=== PATIENT | male | born 1980 | race African-American/Black ===

== ENCOUNTER 2017-07-01 21:05 | Emergency (ER) | payer SELFPAY ==
[~2017-07-01] VITALS: Ht 188 cm; Wt 136.1 kg
--- NOTE | 2017-07-01 21:23 | PHYS DOC ---
Past Medical History Past Medical History: No Pertinent History Past Surgical History: No Surgical History Alcohol Use: None Drug Use: Marijuana Adult General Chief Complaint Chief Complaint: ABDOMINAL PAIN HPI HPI Patient is a 36 year old M who presents with left upper and left lower quadrant abdominal pain for the past 3 days. Patient states the pain was worse today which she rated a 10 out of 10 which brought him to the emergency room. Patient had nausea with no vomiting or diarrhea. Patient denies any dysuria. Patient denies any chest pain or shortness of breath. Patient denies any fevers. Patient states nothing increases or decreases the pain. Patient has no other complaints. Patient only previous abdominal surgery was a foreign body removal when he was a kid. Review of Systems Review of Systems GEN: Denies fevers, chills, sweats HEENT: Denies blurred vision, sore throat CV: Denies chest pain RESP: Denies shortness of air, cough GI: Abdominal pain with nausea NEURO: Denies confusion, dizziness MSK: Denies weakness, joint pain/swelling Current Medications Current Medications Current Medications Medications (Trade) Dose Ordered Sig/Gutierrez Start Time Stop Time Status Last Admin Dose Admin Info (Do NOT chart on this entry -- for MONITORING) 1 each PRN DAILY PRN 07/01/17 21:45 07/03/17 21:44 Iohexol (Omnipaque 300 Mg/ml) 75 ml 1X ONCE 07/01/17 22:00 07/01/17 22:01 DC 07/01/17 21:52 75 ML Ondansetron HCl (Zofran) 4 mg 1X ONCE 07/01/17 22:00 07/01/17 22:01 DC 07/01/17 21:57 4 MG Sodium Chloride 1,000 ml @ 1,000 mls/hr 1X ONCE 07/01/17 22:00 07/01/17 22:59 07/01/17 21:56 1,000 MLS/HR Allergies Allergies Allergies Coded Allergies Type Severity Reaction Last Updated Verified No Known Drug Allergies 04/06/16 No Physical Exam Physical Exam GEN.: No apparent distress. Alert and oriented. HEENT: Head is normocephalic, atraumatic NECK: Supple. LUNGS: CTAB. HEART: RRR, S1, S2 present. Peripheral pulses intact ABDOMEN: Soft, positive tenderness palpation to the left upper quadrant and left lower quadrant with no rebound tenderness, no guarding, no abdominal distention. Positive bowel sounds. EXTREMITIES: Without any cyanosis. NEUROLOGIC: Normal speech, normal tone PSYCHIATRIC: Normal affect, normal mood. SKIN: No ulcerations Current Patient Data Vital Signs Vital Signs Date Time Temp Pulse Resp B/P (MAP) Pulse Ox O2 Delivery O2 Flow Rate FiO2 07/01/17 21:18 98.4 93 18 139/92 (108) 99 Room Air 98.4 Lab Values Laboratory Tests Test 07/01/17 21:15 07/01/17 21:20 Urine Collection Type Unknown Urine Color Yellow Urine Clarity Clear Urine pH 6.0 Urine Specific [place] >=1.030 Urine Protein Negative mg/dL (NEG-TRACE) Urine Glucose (UA) Negative mg/dL (NEG) Urine Ketones (Stick) Negative mg/dL (NEG) Urine Blood Negative (NEG) Urine Nitrite Negative (NEG) Urine Bilirubin Negative (NEG) Urine Urobilinogen Dipstick 0.2 mg/dL (0.2 mg/dL) Urine Leukocyte Esterase Negative (NEG) Urine RBC 0 /HPF (0-2) Urine WBC Occ /HPF (0-4) Urine Squamous Epithelial Cells Few /LPF Urine Bacteria 0 /HPF (0-FEW) Urine Mucus Marked /LPF White Blood Count 11.7 x10^3/uL (4.0-11.0) H Red Blood Count 5.23 x10^6/uL (4.30-5.70) Hemoglobin 15.0 g/dL (13.0-17.5) Hematocrit 44.8 % (39.0-53.0) Mean Corpuscular Volume 86 fL (79-100) Mean Corpuscular Hemoglobin 29 pg (25-35) Mean Corpuscular Hemoglobin Concent 34 g/dL (31-37) Red Cell Distribution Width 14.3 % (11.5-14.5) Platelet Count 315 x10^3/uL (140-400) Neutrophils (%) (Auto) 48 % (31-73) Lymphocytes (%) (Auto) 41 % (24-48) Monocytes (%) (Auto) 6 % (0-9) Eosinophils (%) (Auto) 4 % (0-3) H Basophils (%) (Auto) 2 % (0-3) Neutrophils # (Auto) 5.6 x10^3uL (1.8-7.7) Lymphocytes # (Auto) 4.8 x10^3/uL (1.0-4.8) Monocytes # (Auto) 0.7 x10^3/uL (0.0-1.1) Eosinophils # (Auto) 0.5 x10^3/uL (0.0-0.7) Basophils # (Auto) 0.2 x10^3/uL (0.0-0.2) Sodium Level 145 mmol/L (136-145) Potassium Level 3.9 mmol/L (3.5-5.1) Chloride Level 106 mmol/L (98-107) Carbon Dioxide Level 31 mmol/L (21-32) Anion Gap 8 (6-14) Blood Urea Nitrogen 12 mg/dL (8-26) Creatinine 1.0 mg/dL (0.7-1.3) Estimated GFR (Cockcroft-Gault) 103.5 BUN/Creatinine Ratio 12 (6-20) Glucose Level 103 mg/dL (70-99) H Calcium Level 9.1 mg/dL (8.5-10.1) Total Bilirubin 0.2 mg/dL (0.2-1.0) Aspartate Amino Transferase (AST) 50 U/L (15-37) H Alanine Aminotransferase (ALT) 108 U/L (16-63) H Alkaline Phosphatase 76 U/L (46-116) Total Protein 7.0 g/dL (6.4-8.2) Albumin 4.1 g/dL (3.4-5.0) Albumin/Globulin Ratio 1.4 (1.0-1.7) Lipase 164 U/L (73-393) Laboratory Tests 07/01/17 21:20 Laboratory Tests 07/01/17 21:20 EKG EKG [] Radiology/Procedures Radiology/Procedures CT scan abdomen pelvis: Impression: 1. No acute abnormality identified in the abdomen or pelvis. 2. Small fat-containing umbilical hernia.[] Course & Med Decision Making Course & Med Decision Making Pertinent Labs and Imaging studies reviewed. (See chart for details) ED course: Patient was seen and examined emergency room abdominal workup was ordered along with a CT scan of the abdomen pelvis with contrast 2240: Informed patient of CT findings and lab work. Explained to the patient that he needs a follow up as PCP in have a colonoscopy. MDM: After reviewing the chart, CC/HPI/PMH, physical exam, [lab results], [ radiological results], I do not believe the patient has an intra-abdominal emergency warranting further workup and/or admission at this time. On reexamination the patient feels better. Explained CT findings with the patient including a small umbilical hernia. Recommended short-term follow-up with his PCP in the next one to 2 days. Recommended outpatient colonoscopy to further evaluate his symptoms. Additional verbal discharge instructions were provided to the patient and that if symptoms get worse or any new symptoms arise that are worrisome to the patient he is to return to the emergency room immediately [] Dragon Disclaimer Dragon Disclaimer This electronic medical record was generated, in whole or in part, using a voice recognition dictation system. Departure Departure Impression: Primary Impression: Abdominal pain Disposition: 01 HOME, SELF-CARE Condition: IMPROVED Referrals: MER[facility] KHAN (PCP) Patient Instructions: Abdominal Pain (Nonspecific) Additional Instructions: Please follow-up with your family physician in the next one to 2 days return if symptoms increase REED QUAN DO Jul 01, 2017 21:23
[2017-07-01 21:28] LABS: BASO # 0.2 x10^3/uL (0.0-0.2); BASO % 2 % (0-3); EOS % 4 % (0-3); HEMATOCRIT 44.8 % (39.0-53.0); LYMPH # 4.8 x10^3/uL (1.0-4.8); LYMPH % 41 % (24-48); MEAN CORPUSCULAR HEMOGLOBIN 29 pg (25-35); MEAN CORPUSCULAR HGB CONC 34 g/dL (31-37); MEAN CORPUSCULAR VOLUME 86 fL (79-100); MONO % 6 % (0-9); NEUT % 48 % (31-73); PLATELET COUNT 315 x10^3/uL (140-400); RED BLOOD COUNT 5.23 x10^6/uL (4.30-5.70); RED CELL DISTRIBUTION WIDTH 14.3 % (11.5-14.5); WHITE BLOOD COUNT 11.7 x10^3/uL (4.0-11.0)
[2017-07-01 21:30] LABS: BILIRUBIN,URINE NEGATIVE (NEG); GLUCOSE,URINE NEGATIVE (NEG); NITRITE,URINE NEGATIVE (NEG); PROTEIN,URINE NEGATIVE (NEG-TRACE); UROBILINOGEN,URINE 0.2 mg/dL (0.2 mg/dL)
[2017-07-01 21:36] LABS: BACTERIA,URINE 0 /HPF (0-FEW); RBC,URINE 0 /HPF (0-2); SQUAMOUS EPITHELIAL CELL,UR FEW /LPF; WBC,URINE OCC /HPF (0-4)
[2017-07-01 21:41] LABS: CALCIUM 9.1 mg/dL (8.5-10.1); GFR 103.5; POTASSIUM 3.9 mmol/L (3.5-5.1)
[2017-07-01] MEDS ORDERED: CONTRAST GIVEN MC PRN (21:45)
[2017-07-01 21:46] LABS: ALBUMIN 4.1 g/dL (3.4-5.0); ALBUMIN/GLOBULIN RATIO 1.4 (1.0-1.7); TOTAL BILIRUBIN 0.2 mg/dL (0.2-1.0)
[2017-07-01] MEDS ORDERED: ONDANSETRON PF 4 MG/2 ML VIAL. IV ONE (22:00)
[2017-07-01] MEDS ORDERED: IOHEXOL 300 MG/ML 75 ML VIAL IV ONE (22:00)
[2017-07-01] MEDS ORDERED: IV NORMAL SALINE 1000ML BAG 1,000 ML IV ONE (22:00)
--- NOTE | 2017-07-01 22:23 | RAD ---
CT Abdomen and Pelvis With Intravenous Contrast: History: Severe left lower quadrant pain for 3 days. Comparison: None. Technique: After administration of intravenous contrast administration, 75 mL Omnipaque-300, CT of the abdomen and pelvis was performed. Exposure: One or more of the following individualized dose reduction techniques were utilized for this examination: 1. Automated exposure control 2. Adjustment of the mA and/or kV according to patient size 3. Use of iterative reconstruction technique Findings: Evaluation of enteric structures may be limited by lack of oral contrast. There is also mild pontine mottle artifact secondary to patient body habitus. Liver, spleen, pancreas, gallbladder, and bilateral adrenal glands are unremarkable. Bilateral kidneys enhance symmetrically. No bowel obstruction or inflammation is identified. Appendix is without evidence of inflammation. Fat-containing umbilical hernia is seen. Urinary bladder is unremarkable. No free air or free fluid seen in the abdomen or pelvis. Impression: 1. No acute abnormality identified in the abdomen or pelvis. 2. Small fat-containing umbilical hernia. Electronically signed by: Delvin Kirkpatrick MD (07/01/2017 10:20 PM) [facility]
[2017-07-01 22:56] VITALS: BP 113/79
== END 2017-07-01 23:05 | disposition home or self-care (01) ==
LOC: ER 21:05
DX: R10.12 Left upper quadrant pain (principal); R10.32 Left lower quadrant pain; R11.0 Nausea
CPT/HCPCS: 36415; 74177; 80053; 81001; 83690; 85025; 96361; 96374; 99285; J2405; J7030; Q9967

== ENCOUNTER 2019-10-13 10:42 | Emergency (ER) | payer SELFPAY ==
[~2019-10-13] VITALS: Ht 188 cm; Wt 150.0 kg
[2019-10-13 11:44] VITALS: BP 113/79
[2019-10-13] MEDS ORDERED: AMOXICILLIN 250 MG CAPSULE. PO ONE (12:15)
[2019-10-13] MEDS ORDERED: predniSONE 10 MG TABLET PO ONE (12:15)
[2019-10-13] MEDS ORDERED: PRED50TA PO (12:29)
[2019-10-13] MEDS ORDERED: AMOX875T PO (12:29)
--- NOTE | 2019-10-13 12:29 | PHYS DOC ---
Past Medical History Past Medical History: No Pertinent History Past Surgical History: No Surgical History Alcohol Use: None Drug Use: Marijuana Adult General Chief Complaint Chief Complaint: SORE THROAT HPI HPI Patient is a 38 year old medical presents with sore throat and chills for 4 days. Denies any coughing or congestion. Reports he is able to swallow though it is painful Review of Systems Review of Systems Constitutional: Reports fever Eyes: Denies change in visual acuity, redness, or eye pain [] HENT: Reports sore throat. Denies nasal congestion Respiratory: Denies cough or shortness of breath [] Cardiovascular: No additional information not addressed in HPI [] GI: Denies abdominal pain, nausea, vomiting, bloody stools or diarrhea [] : Denies dysuria or hematuria [] Musculoskeletal: Denies back pain or joint pain [] Integument: Denies rash or skin lesions [] Neurologic: Denies headache, focal weakness or sensory changes [] All other systems were reviewed and found to be within normal limits, except as documented in this note. Current Medications Current Medications Current Medications Medications (Trade) Dose Ordered Sig/Gutierrez Start Time Stop Time Status Last Admin Dose Admin Amoxicillin (Amoxil) 500 mg 1X ONCE 10/13/19 12:15 10/13/19 12:16 DC 10/13/19 12:07 500 MG Prednisone (Prednisone) 50 mg 1X ONCE 10/13/19 12:15 10/13/19 12:16 DC 10/13/19 12:07 50 MG Allergies Allergies Allergies Coded Allergies Type Severity Reaction Last Updated Verified No Known Drug Allergies 04/06/16 No Physical Exam Physical Exam Constitutional: Well developed, well nourished, no acute distress, non-toxic appearance. [] HENT: Normocephalic, atraumatic, bilateral external ears normal, oropharynx moist, no oral exudates, nose normal. [] Posterior pharynx with mild erythema, midline uvula, no exudate. +2 anterior cervical adenopathy. Airway is open Eyes: PERRLA, EOMI, conjunctiva normal, no discharge. [] Neck: Normal range of motion, no tenderness, supple, no stridor. [] Cardiovascular:Heart rate regular rhythm, no murmur [] Lungs & Thorax: Bilateral breath sounds clear to auscultation [] Abdomen: Bowel sounds normal, soft, no tenderness, no masses, no pulsatile masses. [] Skin: Warm, dry, no erythema, no rash. [] Back: No tenderness, no CVA tenderness. [] Extremities: No tenderness, no cyanosis, no clubbing, ROM intact, no edema. [] Neurologic: Alert and oriented X 3, normal motor function, normal sensory function, no focal deficits noted. [] Psychologic: Affect normal, judgement normal, mood normal. [] Current Patient Data Vital Signs Vital Signs Date Time Temp Pulse Resp B/P (MAP) Pulse Ox O2 Delivery O2 Flow Rate FiO2 10/13/19 11:44 98.9 104 20 113/79 (90) 98 Room Air 98.9 Lab Values Laboratory Tests Test 10/13/19 11:45 Group A Streptococcus Rapid Positive (NEGATIVE) EKG EKG [] Radiology/Procedures Radiology/Procedures [] Course & Med Decision Making Course & Med Decision Making Pertinent Labs and Imaging studies reviewed. (See chart for details) Positive rapid strep. Discharged on amoxicillin and prednisone. Provided return precautions. Discharged in stable condition Dragon Disclaimer Dragon Disclaimer This electronic medical record was generated, in whole or in part, using a voice recognition dictation system. Departure Departure Impression: Primary Impression: Acute streptococcal pharyngitis Disposition: HOME, SELF-CARE Condition: STABLE Referrals: NO PCP (PCP) ETIENNE SHOOK MD Follow-up in 1-2 weeks Patient Instructions: Strep Infections Additional Instructions: You have strep infection. Please take the prescribed medications especially the antibiotics until completed. Continue using Tylenol/Motrin for pain or fever. Saltwater gargles also recommended. Come back to the emergency room at any point symptoms worsen. Scripts Prednisone (PREDNISONE) 50 Mg Tablet 1 TAB PO DAILY, #5 TAB Prov: MAIN REICH APRN 10/13/19 Amoxicillin (AMOXICILLIN) 875 Mg Tablet 1 TAB PO BID, #20 TAB Prov: MAIN REICH APRN 10/13/19 MAIN REICH APRN Oct 13, 2019 12:29
== END 2019-10-13 12:36 | disposition home or self-care (01) ==
LOC: ER 10:42
DX: J02.0 Streptococcal pharyngitis (principal); B95.0 Streptococcus, group A, as the cause of diseases classified elsewhere
CPT/HCPCS: 87880; 99283; J7512

== ENCOUNTER 2021-06-05 15:42 | Emergency (ER) | payer SELFPAY ==
[~2021-06-05] VITALS: Ht 188 cm; Wt 165.1 kg
[~2021-06-05 15:42] MED LIST: AMOX875T PO; PRED50TA PO
--- NOTE | 2021-06-05 16:16 | PHYS DOC ---
Past Medical History Past Medical History: No Pertinent History Additional Past Medical Histor: morbid obesity Past Surgical History: Other Additional Past Surgical Histo: foreign body removal from intestines as child Smoking Status: Former Smoker Alcohol Use: None Drug Use: Marijuana General Adult EDM: Chief Complaint: FLU SYMPTOM HPI: HPI: Patient is a 40-year-old male presents to the emergency department complaining of COVID-19 virus illness for the past week and a half. Patient reports having a COVID-19 virus tests done yesterday and was told today he was positive. Patient reports continued intermittent nausea, diarrhea, fevers chills hot flashes body aches headaches cough or shortness of breath. Patient denies chest pain, nasal or chest congestion. Reports taking tllx-nni-eirzlwi Tylenol at noon today with minimal relief in symptoms. Denies receiving the COVID-19 virus vaccination series, denies allergies to medicines, takes no prescription medications at home. Patient reports his current body aches and pain at a 4 out of 10 pain. Denies other physical symptoms or concerns. Review of Systems: Review of Systems: 14 body systems of review of systems have been reviewed. See HPI for pertinent positives and negative responses, otherwise all other systems are negative, nonpertinent or noncontributory. Constitutional: Negative except as outlined in HPI above. Skin: Negative except as outlined in HPI above. Eyes: Negative except as outlined in HPI above. HENT: Negative except as outlined in HPI above. Respiratory: Negative except as outlined in HPI above. Cardiovascular: Negative except as outlined in HPI above. GI: Negative except as outlined in HPI above. : Negative except as outlined in HPI above. Musculoskeletal: Negative except as outlined in HPI above. Integument: Negative except as outlined in HPI above. Neurologic: Negative except as outlined in HPI above. Endocrine: Negative except as outlined in HPI above. Lymphatic: Negative except as outlined in HPI above. Psychiatric: Negative except as outlined in HPI above. Heart Score: C/O Chest Pain: No Risk Factors: Risk Factors: DM, Current or recent (<one month) smoker, HTN, HLP, family history of CAD, obesity. Risk Scores: Score 0 - 3: 2.5% MACE over next 6 weeks - Discharge Home Score 4 - 6: 20.3% MACE over next 6 weeks - Admit for Clinical Observation Score 7 - 10: 72.7% MACE over next 6 weeks - Early Invasive Strategies Allergies: Allergies: Allergies Coded Allergies Type Severity Reaction Last Updated Verified No Known Drug Allergies 06/05/21 No Physical Exam: PE: Constitutional: Well developed, well nourished, no acute distress, non-toxic appearance. 40-year-old in no apparent distress. HENT: Normocephalic, atraumatic. Eyes: Conjunctiva normal, no discharge. Neck: Normal range of motion, no stridor. Cardiovascular: No cyanosis appreciated, distal cap refill less than 2 seconds. Lungs & Thorax: Patient is in no respiratory distress, no audible adventitious lung sounds appreciated. Lung sounds clear to auscultate all lung jolly. Abdomen: Nontender, no abnormalities noted. Skin: Warm, dry, no erythema, no rash. Back: No tenderness, no deformities. Extremities: No tenderness, no cyanosis, no clubbing, ROM intact, no edema. Neurologic: Alert and oriented X 3, normal motor function, normal sensory function, no focal deficits noted. Psychologic: Affect normal, judgement normal, mood normal. Current Patient Data: Labs: Laboratory Tests Test 06/05/21 16:15 White Blood Count 7.2 x10^3/uL Red Blood Count 5.52 x10^6/uL Hemoglobin 15.6 g/dL Hematocrit 46.0 % Mean Corpuscular Volume 83 fL Mean Corpuscular Hemoglobin 28 pg Mean Corpuscular Hemoglobin Concent 34 g/dL Red Cell Distribution Width 15.1 % Platelet Count 288 x10^3/uL Neutrophils (%) (Auto) 52 % Lymphocytes (%) (Auto) 39 % Monocytes (%) (Auto) 7 % Eosinophils (%) (Auto) 1 % Basophils (%) (Auto) 1 % Neutrophils # (Auto) 3.7 x10^3/uL Lymphocytes # (Auto) 2.8 x10^3/uL Monocytes # (Auto) 0.5 x10^3/uL Eosinophils # (Auto) 0.0 x10^3/uL Basophils # (Auto) 0.1 x10^3/uL Sodium Level 140 mmol/L Potassium Level 2.9 mmol/L Chloride Level 101 mmol/L Carbon Dioxide Level 26 mmol/L Anion Gap 13 Blood Urea Nitrogen 4 mg/dL Creatinine 1.0 mg/dL Estimated GFR (Cockcroft-Gault) 101.2 Glucose Level 109 mg/dL Calcium Level 8.9 mg/dL Troponin I Quantitative < 0.017 ng/mL Current Medications Medications (Trade) Dose Ordered Sig/Gutierrez Route PRN Reason Start Time Stop Time Status Last Admin Dose Admin Potassium Chloride (Klor-Con) 40 meq 1X ONCE PO 06/05/21 17:00 06/05/21 17:01 Vital Signs: Vital Signs Date Time Temp Pulse Resp B/P (MAP) Pulse Ox O2 Delivery O2 Flow Rate FiO2 06/05/21 15:57 98.5 106 18 145/86 (105) 97 Room Air 98.5 EKG: EKG: EKG performed at 1558 by ED nursing staff shows a sinus tachycardia rate 103 bpm without other ectopy, diffuse ST depressions with T wave inversion in anterior lateral leads, WI interval 0.146, QTc interval 0.511, no acute STEMI appreciated, EKG interpreted by ED attending physician Dr. Oscar. Radiology/Procedures: Radiology/Procedures: PATIENT: SELENE LOTT ACCOUNT: [id number] : 1980 LOCATION: ER AGE: 40 SEX: M EXAM STATUS: REG ER ORD. PHYSICIAN: CHERYL FOSTER APRN REASON: Short of breath, COVID-19 positive PROCEDURE: CHEST AP ONLY EXAM: CHEST 1 VIEW History: Shortness of breath, covid 19 COMPARISON: 04/06/2016 TECHNIQUE: Single portable radiograph of the chest FINDINGS: The cardiac silhouette is unremarkable. Mild bibasilar lung atelectasis or infiltrates. The costophrenic sulci are clear and well demarcated. IMPRESSION: Mild bibasilar lung atelectasis or infiltrates. Electronically signed by: Titus Quintana MD (06/05/2021 4:32 PM) [id number] Course & Med Decision Making: Course & Med Decision Making Pertinent Labs and Imaging studies reviewed. (See chart for details) 40-year-old male, vital signs reviewed, presents emergency department concerning COVID-19 virus symptoms. Physical examination consistent with viral illness. EKG performed by ED nursing staff related to shortness of breath shows nonspecific ST depression with T wave inversion, the patient is not hypoxic, the patient denies chest pain, will order CBC, BMP, troponin, chest x-ray. Patient's potassium 2.9, given oral potassium supplement in ED today. Patient's CBC unremarkable, patient's troponin nonconcerning. Patient's chest x-ray consistent with COVID-19 virus infection. The patient is not hypoxic, lung sounds clear all lung jolly. Patient's presentation and symptoms consistent with COVID-19 virus infectious process. Will discharge patient home diagnosis viral syndrome Covid 19+. Patient's hypokalemia most likely related to diarrhea episodes at home. The patient is not dehydrated on today's visit. Discussed all lab work and findings with patient, recommended COVID-19 virus quarantine, will attach information to discharge instructions, given strict follow-up to ER precautions, follow-up with primary care doctor this week for ongoing symptoms. Will refill prescription for albuterol MDI inhaler, patient is amenable to ED discharge planning Discussed with the patient all findings and diagnostic testing as well as the need to follow-up with their primary care provider for further evaluation and treatment or return to the ED if any new or worsening symptoms. Strict return precautions were also discussed at length, the patient voiced understanding and agreement with the discharge planning. The patient was nontoxic in appearance, in no apparent distress, and hemodynamically stable at the time of disposition. SIRS-Lab Disclaimer: SIRS-Lab Disclaimer: This electronic medical record was generated, in whole or in part, using a voice recognition dictation system. Departure Departure Impression: Primary Impression: Viral syndrome Additional Impressions: COVID-19 virus infection Hypokalemia Disposition: HOME / SELF CARE / HOMELESS Condition: GOOD Referrals: NO PCP (PCP) Patient Instructions: Hypokalemia, Viral Syndrome Additional Instructions: You were seen today in the emergency department for symptoms of your COVID-19 virus infection. A chest x-ray, EKG, lab work was performed today in the emergency department. There were no concerning findings that would warrant admission to the hospital or immediate attention by a specialist. As we discussed, please continue to use [id number] medications for fevers and chills with body aches to treat your symptoms. I am refilling your prescription for your albuterol inhaler as you requested. Your potassium was low today in the emergency department, you were given a potassium supplement. Please consume potassium rich foods to help maintain a normal healthy level in your body. Please follow-up with your primary care doctor this week for ongoing management of your COVID-19 virus symptoms. I have attached COVID-19 virus information to this document please review. Thank you for visiting our Emergency Department. It was a pleasure taking care of you today in the emergency department and we appreciate you trusting us with your care. If any additional problems come up d on't hesitate to return to visit us. Please follow up with your primary care provider so they can plan additional care if needed and know about the problem that you had. If symptoms worsen come back to the Emergency Department. Any concerning symptoms that start such as chest pain, shortness of air, weakness or numbness on one side of the body, running high fevers or any other concerning symptoms return to the ER. EMERGENCY DEPARTMENT GENERAL DISCHARGE INSTRUCTIONS Thank you for coming to [facility] (ED) today and trusting us with you care. We trust that you had a positive experience in our Emergency Department. If you wish to speak to the department management, you may call the Director at [phone]. YOUR FOLLOW UP INSTRUCTIONS ARE FOLLOWS: 1. Do you have a private Doctor? If you do not have a private doctor, please ask for a resource list of physicians or clinics that may be able to assist you with follow up care. 2. The Emergency Physicain has interpreted your x-rays. The X-Ray specialist will also review them. If there is a change in the findings, you will be notified in 48 hours when at all possible. 3. A lab test or culture has been done, your results will be reviewed and you will be notified if you need a change in treatment. ADDITIONAL INSTRUCTIONS AND INFORMATION: 1. Your care today has been supervised by a physician who is specially trained in emergency care. Many problems require more than one evaluation for a complete diagnosis and treatment. We recommend that you schedule your follow up appointment as recommended to ensure complete treatment of you illness or injury. If you are unable to obtain follow up care and continue to have a problem, or if your condition worsens, we recommend that you return to the ED. 2. We are not able to safely determine your condition over the phone nor are we able to give sound medical advice over the phone. For these safety reasons, if you call for medical advice we will ask you to come to the ED for further evaluation. 3. If you have any questions regarding these discharge instructions please call the ED at [phone]. SAFETY INFORMATION: In the interest of safety, wellness, and injury prevention; we encourage you to wear your sealbelt, if you smoke; quite smoking, and we encourage family to use a protective helmet for bicycling and other sporting events that present an increased risk for head injury. IF YOUR SYMPTOMS WORSEN OR NEW SYMPTOMS DEVELOP, OR YOU HAVE CONCERNS ABOUT YOUR CONDITION; OR IF YOUR CONDITION WORSENS WHILE YOU ARE WAITING FOR YOUR FOLLOW UP APPOINTMENT; EITHER CONTACT YOUR PRIMARY CARE DOCTOR, THE PHYSICIAN WHOSE NAME AND NUMBER YOU WERE GIVEN, OR RETURN TO THE ED IMMEDIATELY. You have been tested for or diagnosed with COVID-19. It is an infection caused by a new type of coronavirus. COVID-19 will cause cold-like or mild flu symptoms in most. It can cause more severe symptoms like problems breathing in some. There is no treatment for COVID-19. The body will clear the infection over time. Self-care will help to ease discomfort. Steps to Take: Self-Care Rest as needed. Healthy habits may help you feel better. Steps include: Choose healthy foods including fruits and vegetables. Drink water throughout the day. Get plenty of sleep each night. If you smoke, try to quit. It may ease breathing. Avoid alcohol. Keep Others Healthy The virus can spread to others. Droplets are released every time you sneeze or cough. The droplets can get into the mouth, nose, or eyes of people near you and lead to infection. To lower the chances of spreading COVID-19 to others: Stay at home until your doctor has said it is safe to leave. If you tested positive this will mean staying isolated until both of the following are true: At least 7 days have passed since the start of illness. You are free of fever for at least 72 hours without the use of medicine. During this time: - Avoid public areas, events, or transportation. Do not return to work or school until your doctor has said it is safe to do so. - Call ahead if you need to go to a medical center. Let them know you may have COVID-19. It will help them guide you where to go. They may also ask you to wear a facemask when you come to the office. - If you call for emergency medical services, let them know you may have COVID- 19. While at home: - Try to avoid close contact with others. Stay about 6 feet away. - If possible, spend most of your time in a separate room from others. - Use a face mask if you will be in close contact with others such as sharing a room or vehicle. - Have someone wipe down common surfaces in the home. Use household assistant broker every day on areas like doorknobs, counters, or sinks. - Cough or sneeze into a tissue. Throw the tissue away right after use. If a tissue is not available, cough or sneeze into your elbow. - Wash your hands often. Wash them after sneezing or coughing. Use soap and water and wash for at least 20 seconds. Alcohol based hand loom cleaner can be used if soap and water is not available. - Do not prepare food for others. Avoid sharing personal items like forks, spoons, or toothbrushes. - Avoid close contact with pets while you are sick. There is no evidence of the virus passing to pets. This is a safety step until more is known about this virus. Isolation can be frustrating. Social interaction can help. Keep in touch with friends and family through phone and tech options. You can still interact with others in your home, just keep a safe distance of about 6 feet. Follow-up: Your doctors office will check in with you to see if there are any changes in your health. You may be asked to keep track of symptoms to share with them. They will also let you know when you are clear to be in public again. Problems to Look Out For: Contact your doctor if your recovery is not going as you expect. Get emergency care if you have problems such as: - Trouble breathing - Nonstop chest pain or pressure - Changes in awareness, confusion, or problems waking - Lips or face have bluish color - Worsening of symptoms If you think you have an emergency, call for emergency medical services right away. As taken from [facility] Albuterol Sulfate (PROAIR HFA INHALER) 8.5 Gm Hfa.aer.ad 2 PUFF IH PRN Q4-6HRS PRN for wheezing for 21 Days, #1 INHALER 0 Refills Prov: CHERYL FOSTER APRN 06/05/21 CHERYL FOSTER APRN Jun 05, 2021 16:16
[2021-06-05 16:34] LABS: BASO # 0.1 x10^3/uL (0.0-0.2); BASO % 1 % (0-3); EOS % 1 % (0-3); HEMOGLOBIN 15.6 g/dL (13.0-17.5); LYMPH # 2.8 x10^3/uL (1.0-4.8); LYMPH % 39 % (24-48); MEAN CORPUSCULAR HEMOGLOBIN 28 pg (25-35); MEAN CORPUSCULAR HGB CONC 34 g/dL (31-37); MEAN CORPUSCULAR VOLUME 83 fL (79-100); MONO # 0.5 x10^3/uL (0.0-1.1); MONO % 7 % (0-9); NEUT # 3.7 x10^3/uL (1.8-7.7); NEUT % 52 % (31-73); PLATELET COUNT 288 x10^3/uL (140-400); RED BLOOD COUNT 5.52 x10^6/uL (4.30-5.70); RED CELL DISTRIBUTION WIDTH 15.1 % (11.5-14.5); WHITE BLOOD COUNT 7.2 x10^3/uL (4.0-11.0)
--- NOTE | 2021-06-05 16:35 | RAD ---
EXAM: CHEST 1 VIEW History: Shortness of breath, covid 19 COMPARISON: 04/06/2016 TECHNIQUE: Single portable radiograph of the chest FINDINGS: The cardiac silhouette is unremarkable. Mild bibasilar lung atelectasis or infiltrates. Th e costophrenic sulci are clear and well demarcated. IMPRESSION: Mild bibasilar lung atelectasis or infiltrates. Electronically signed by: Titus Quintana MD (06/05/2021 4:32 PM) [id number]
[2021-06-05 16:43] LABS: CALCIUM 8.9 mg/dL (8.5-10.1); GFR 101.2
[2021-06-05 16:55] LABS: POTASSIUM 2.9 mmol/L (3.5-5.1)
[2021-06-05] MEDS ORDERED: POTASSIUM CHLORIDE 20 MEQ TABLET.ER. PO ONE (17:00)
[2021-06-05] MEDS ORDERED: ALBU2.5V8 IH (17:14)
[2021-06-05 17:23] VITALS: BP 115/68
--- NOTE | 2021-06-06 07:01 | EKG ---
[facility] [address] [place] [address] Test Date: 2021-06-05 Test Time: 15:58:58 Pat Name: SELENE LOTT Department: Room: Gender: M Student Driving Instructor: : 1980 Requested By: CHERYL FOSTER Order Number: [id number] Reading MD: Measurements Intervals [place] Rate: 103 P: 38 MA: 146 QRS: -15 QRSD: 80 T: -5 QT: 388 QTc: 511 Interpretive Statements SINUS TACHYCARDIA LEFTWARD AXIS ST & T ABNORMALITY, CONSIDER INFERIOR ISCHEMIA OR LEFT VENTRICULAR STRAIN T ABNORMALITY IN ANTEROLATERAL LEADS ABNORMAL ECG RI6.01 No previous ECG available for comparison
== END 2021-06-05 17:55 | disposition home or self-care (01) ==
LOC: ER 15:42
DX: U07.1 COVID-19 (principal); B34.9 Viral infection, unspecified; E87.6 Hypokalemia; R51.9 Headache, unspecified; R19.7 Diarrhea, unspecified; Z87.891 Personal history of nicotine dependence; E66.01 Morbid (severe) obesity due to excess calories; Z68.42 Body mass index [BMI] 45.0-49.9, adult
CPT/HCPCS: 36415; 71045; 80048; 84484; 85025; 93005; 99285-25